=== PATIENT | female | born 1975 | race Caucasian/White ===

== ENCOUNTER 2017-06-04 08:27 | Outpatient (CLI) | payer OTHER | END 2017-06-04 08:30 | LOC: OUT 08:27 | PROVIDERS: ATTEND General Practice | DX: Z00.00 Encounter for general adult medical examination without abnormal findings (principal) | CPT/HCPCS: 99213 ==

== ENCOUNTER 2017-07-02 08:08 | Outpatient (CLI) | payer OTHER | END 2017-07-02 08:10 | LOC: OUT 08:08 | PROVIDERS: ATTEND General Practice | DX: N87.0 Mild cervical dysplasia (principal) | CPT/HCPCS: 57420 ==

== ENCOUNTER 2017-07-30 08:15 | Outpatient (CLI) | payer OTHER | END 2017-07-30 08:16 | LOC: OUT 08:15 | PROVIDERS: ATTEND General Practice | DX: R10.9 Unspecified abdominal pain (principal) | CPT/HCPCS: 99213 ==